=== PATIENT | female | born 1985 | race Caucasian/White ===

== ENCOUNTER 2017-10-07 19:06 | Outpatient (CLI) | payer MEDICAID ==
[2017-10-07 20:28] LABS: ADD UMIC YES; UR AMORPHOUS CRYSTAL MODERATE /HPF (NONE SEEN); UR ASCORBIC ACID NEGATIVE (NEGATIVE); UR BACTERIA FEW /HPF (NONE SEEN); UR BILIRUBIN (Dip) NEGATIVE (NEGATIVE); UR BLOOD (Dip) 1+ mg/dL (NEGATIVE); UR CLARITY CLOUDY (CLEAR); UR COLOR YELLOW (YELLOW); UR GLUCOSE (Dip) NEGATIVE (NEGATIVE); UR KETONES (Dip) NEGATIVE (NEGATIVE); UR LEUKOCYTE ESTERASE (Dip) 3+ Leu/ul (NEGATIVE); UR NITRITE (Dip) NEGATIVE (NEGATIVE); UR RBC 2 /HPF (0-5); UR SPECIFIC GRAVITY (Dip) 1.017 (1.003-1.030); UR SQUAMOUS EPITHELIAL CELL MODERATE /HPF (FEW); UR TOTAL PROTEIN (Dip) NEGATIVE (NEGATIVE); UR UROBILINOGEN (Dip) 1+ mg/dL (NEGATIVE); UR WBC 11 /HPF (0-5)
== END 2017-10-07 21:30 | disposition home or self-care (01) ==
LOC: OBT 19:06 → L-D 19:07 → OBT 21:30
DX: O26.892 Other specified pregnancy related conditions, second trimester (principal); R10.2 Pelvic and perineal pain; Z3A.22 22 weeks gestation of pregnancy
CPT/HCPCS: 76815; 76817; 81001; 87086

== ENCOUNTER 2018-01-23 12:06 | Outpatient (CLI) | payer OTHER, MEDICAID | END 2018-01-23 15:30 | disposition home or self-care (01) | LOC: OBT 12:06 → L-D 12:06 → OBT 15:30 | DX: O36.8330 Maternal care for abnormalities of the fetal heart rate or rhythm, third trimester, not applicable or unspecified (principal); O24.419 Gestational diabetes mellitus in pregnancy, unspecified control; Z3A.37 37 weeks gestation of pregnancy | CPT/HCPCS: 76818 ==

== ENCOUNTER 2018-02-02 12:20 | Inpatient (IN) | payer OTHER ==
[2018-02-02 16:27] LABS: ADD MAN DIFF? NO
[2018-02-02] MEDS: LACTATED RINGER'S 1,000 ML IV* ×2 (16:28→21:37)
[2018-02-02 16:29] LABS: BASOPHILS % 0.5 % (0.0-2.0); EOSINOPHILS % 0.5 % (0.0-7.0); HEMATOCRIT 30.6 % (37.0-47.0); HEMOGLOBIN 10.2 g/dl (12.0-16.0); LYMPHOCYTES # 1.9 10^3/ul (0.8-2.9); LYMPHOCYTES % 22.8 % (15.0-51.0); MEAN CORPUSCULAR HEMOGLOBIN 28.1 pg (29.0-33.0); MEAN CORPUSCULAR HGB CONC 33.3 g/dl (32.0-37.0); MEAN CORPUSCULAR VOLUME 84.3 fl (82.0-101.0); MEAN PLATELET VOLUME 11.3 fl (7.4-10.4); MONOCYTE # 0.5 10^3/ul (0.3-0.9); MONOCYTES % 5.8 % (0.0-11.0); NEUTROPHIL # 5.7 10^3/ul (1.6-7.5); NEUTROPHILS % 69.4 % (39.0-77.0); PLATELET COUNT 253 10^3/UL (140-415); RED BLOOD COUNT 3.63 10^6/ul (4.20-5.40); RED CELL DISTRIBUTION WIDTH 13.5 % (11.5-14.5)
[2018-02-02 16:29] LABS: WHITE BLOOD COUNT 8.2 10^3/ul (4.8-10.8)
[2018-02-02] MEDS ORDERED: METHYLERGONOVINE 0.2 MG INJ IM (16:30)
[2018-02-02] MEDS ORDERED: IBUPROFEN 600 MG TAB PO (16:30)
[2018-02-02] MEDS ORDERED: OXYTOCIN 30 UNITS/LR 500 ML IV (16:30)
[2018-02-02] MEDS ORDERED: MISOPROSTOL 200 MCG TAB PR (16:30)
[2018-02-02] MEDS ORDERED: LIDOCAINE 1% (MPF) 30 ML INJ INJ (16:30)
[2018-02-02] MEDS ORDERED: CARBOPROST 250 MCG INJ IM (16:30)
[2018-02-02] MEDS ORDERED: BUTORPHANOL 2 MG INJ IV (16:30)
[2018-02-02 16:42] LABS: GLUCOSE 102 mg/dl (70-220)
[2018-02-02 16:48] LABS: INR 0.85; PROTIME 11.7 Sec (11.9-14.9); PT RATIO 0.9
[2018-02-02 16:49] LABS: PARTIAL THROMBOPLASTIN TIME 26.6 Sec (25.0-35.0)
[2018-02-02] MEDS: DINOPROSTONE 10 MG VAG SUPP VAG (16:52)
[2018-02-02 17:05] LABS: HEPATITIS B SURFACE ANTIGEN NEGATIVE (NEGATIVE)
[2018-02-02] MEDS ORDERED: MINERAL OIL LIGHT 10 ML VIAL TOP ×2 (19:30→21:00)
[2018-02-02 21:56] LABS: RAPID PLASMA REAGIN NONREACTIVE (NR)
[2018-02-03] MEDS: LACTATED RINGER'S 1,000 ML IV* ×4 (02:16→18:07)
[2018-02-03] MEDS ORDERED: FENTAnyl 2MCG/ML-ROPIV 0.2% 100 ML (02:50)
[2018-02-03] MEDS: FENTAnyl 2MCG/ML-ROPIV 0.2% 100 ML BAG EPI ×2 (03:45→09:24)
[2018-02-03] MEDS ORDERED: NALOXONE (0.4 MG/ML) INJ IV (04:00)
[2018-02-03] MEDS: AMPICILLIN 2 GM/NS (PMX) 100 ML IVPB ×2 (08:18→13:06)
[2018-02-03] MEDS: GENTAMICIN 120 MG/NS (PMX) 100 ML IVPB (09:14)
[2018-02-03] MEDS: OXYTOCIN 30 UNITS/LR 500 ML IV ×2 (14:43→15:00)
[2018-02-03] MEDS ORDERED: GENTAMICIN 80 MG/NS (PMX) 50 ML IVPB (16:00)
[2018-02-03] MEDS ORDERED: HYDROCODONE/APAP (5/325) TAB PO ×2 (17:30)
[2018-02-03] MEDS ORDERED: CARBOPROST 250 MCG INJ IM (17:30)
[2018-02-03] MEDS ORDERED: ZOLPIDEM 5 MG TAB PO (17:30)
[2018-02-03] MEDS ORDERED: METHYLERGONOVINE 0.2 MG INJ IM (17:30)
[2018-02-03] MEDS ORDERED: MISOPROSTOL 200 MCG TAB PR (17:30)
[2018-02-03] MEDS ORDERED: OXYTOCIN 30 UNITS/LR 500 ML IV (17:30)
[2018-02-03] MEDS: AMPICILLIN/SULB 3 GM/NS (PMX) 100 ML IVPB (18:00)
[2018-02-03] MEDS: BENZOCAINE 20% 56 ML SPRAY TOP (18:03)
[2018-02-03] MEDS: LANOLIN 7 GM TUBE TOP (18:03)
[2018-02-03] MEDS: WITCH HAZEL/GLYCERIN PAD PR (18:03)
[2018-02-03] MEDS: CEPHALEXIN 500 MG CAP PO ×2 (18:03→23:46)
[2018-02-03] MEDS: DIBUCAINE 1% 30 GM OINT PR (18:03)
[2018-02-03] MEDS: IBUPROFEN 600 MG TAB PO (18:03)
[2018-02-03] MEDS: ACCU-CHEK XX (20:19)
[2018-02-03] MEDS: SENNA/DOCUSATE NA (8.6MG/50MG) TAB PO (20:55)
[2018-02-03] MEDS: MAGNESIUM HYDROXIDE 30ML CUP PO (20:55)
[2018-02-03] MEDS: metFORMIN (XR) 500 MG TAB PO (22:17)
[2018-02-04] MEDS: LACTATED RINGER'S 1,000 ML IV* ×3 (01:05→17:05)
[2018-02-04] MEDS: AMPICILLIN/SULB 3 GM/NS (PMX) 100 ML IVPB ×5 (02:14→23:35)
[2018-02-04] MEDS: CEPHALEXIN 500 MG CAP PO ×2 (05:50→12:22)
[2018-02-04] MEDS: IBUPROFEN 600 MG TAB PO ×5 (05:51→23:35)
[2018-02-04] MEDS: ACCU-CHEK XX ×4 (07:30→20:05)
[2018-02-04 08:20] LABS: ADD MAN DIFF? NO
[2018-02-04 08:28] LABS: BASOPHILS % 0.3 % (0.0-2.0); EOSINOPHILS % 0.3 % (0.0-7.0); HEMATOCRIT 27.6 % (37.0-47.0); HEMOGLOBIN 9.1 g/dl (12.0-16.0); LYMPHOCYTES # 1.7 10^3/ul (0.8-2.9); LYMPHOCYTES % 16.5 % (15.0-51.0); MEAN CORPUSCULAR HEMOGLOBIN 27.8 pg (29.0-33.0); MEAN CORPUSCULAR VOLUME 84.4 fl (82.0-101.0); MEAN PLATELET VOLUME 11.6 fl (7.4-10.4); MONOCYTE # 0.6 10^3/ul (0.3-0.9); NEUTROPHIL # 8.1 10^3/ul (1.6-7.5); NEUTROPHILS % 76.2 % (39.0-77.0); PLATELET COUNT 203 10^3/UL (140-415); RED BLOOD COUNT 3.27 10^6/ul (4.20-5.40); RED CELL DISTRIBUTION WIDTH 13.6 % (11.5-14.5)
[2018-02-04 08:28] LABS: WHITE BLOOD COUNT 10.6 10^3/ul (4.8-10.8)
[2018-02-04] MEDS: SENNA/DOCUSATE NA (8.6MG/50MG) TAB PO ×2 (09:00→21:00)
[2018-02-04] MEDS: MAGNESIUM HYDROXIDE 30ML CUP PO ×2 (09:00→21:00)
[2018-02-04] MEDS: metFORMIN (XR) 500 MG TAB PO ×2 (09:16→21:20)
[2018-02-05] MEDS: LACTATED RINGER'S 1,000 ML IV* ×2 (01:05→09:05)
[2018-02-05] MEDS: AMPICILLIN/SULB 3 GM/NS (PMX) 100 ML IVPB ×2 (06:00→12:00)
[2018-02-05] MEDS: IBUPROFEN 600 MG TAB PO ×2 (06:06→13:00)
[2018-02-05] MEDS: ACCU-CHEK XX ×3 (07:30→13:50)
[2018-02-05] MEDS: MAGNESIUM HYDROXIDE 30ML CUP PO (09:00)
[2018-02-05] MEDS: SENNA/DOCUSATE NA (8.6MG/50MG) TAB PO (09:00)
[2018-02-05] MEDS: MEASLES,MUMPS,RUBELLA VACCINE INJ SC* (09:00)
[2018-02-05] MEDS: VARICELLA VACCINE LIVE/PF 1,350 UNIT/0.5 ML ML SC* (09:00)
[2018-02-05] MEDS: DIPHTH/TET/ACEL PERTUSS (ADULT) 0.5 ML VIAL IM* (09:00)
[2018-02-05] MEDS: metFORMIN (XR) 500 MG TAB PO (09:05)
== END 2018-02-05 13:55 | disposition home or self-care (01) | DRG 775 ==
LOC: OBT 12:20 → L-D 12:21 → PP1 02-03 17:16 → OBT 15:30 → L-D 14:45
PROVIDERS: Obstetrics & Gynecology
PROC: 10E0XZZ Delivery of Products of Conception, External Approach (ICD-10-PCS; principal; 2018-02-03)
PROC: 3E0P7VZ Introduction of Hormone into Female Reproductive, Via Natural or Artificial Opening (ICD-10-PCS; 2018-02-03)
DX: O24.429 Gestational diabetes mellitus in childbirth, unspecified control (principal); Z3A.39 39 weeks gestation of pregnancy; Z37.0 Single live birth
CPT/HCPCS: 62319; 76815; 82947; 82962; 85025; 85610; 85730; 86592; 86850; 86900; 86901; 87040; 87086; 87340; 88307